=== PATIENT | male | born 1950 | race Hispanic/Latino ===

== ENCOUNTER 2023-10-23 23:16 | Emergency (ER) | payer OTHER ==
[2023-10-24] MEDS ORDERED: DIAZEPAM 10 MG/2 ML INJ SYRINGE ONE (00:51)
[2023-10-24 01:14] LABS: Barbiturates NEGATIVE (NEGATIVE); Benzodiazepines NEGATIVE (NEGATIVE); Cocaine NEGATIVE (NEGATIVE); METHAMPHETAM NEGATIVE (NEGATIVE); Methadone NEGATIVE (NEGATIVE); Opiates NEGATIVE (NEGATIVE); Phencyclidine NEGATIVE (NEGATIVE); THC Cannibis NEGATIVE (NEGATIVE)
[2023-10-24 01:19] LABS: PT Prothrombin Time 11.8 SECONDS (9.5-12.5); Protime INR 1.07
[2023-10-24 01:21] LABS: Hematocrit 38.7 % (39.6-49.0); Hemoglobin 13.4 g/dL (13.6-17.9); MCH 35.8 pg (27.0-35.0); MCHC 34.7 g/dL (32.0-36.0); MCV 103.3 fL (80-100); Platelets 159 thou/uL (152-406); RBC Red Blood Cell Count 3.75 M/uL (4.33-5.43); Red Cell Distribution Width 14.7 % (12.1-15.2)
[2023-10-24 01:22] LABS: Absolute Eosinophils 0.2 K/uL (0-0.5); Absolute Lymphocytes (CBC) 2.1 K/uL (0.7-4.9); Absolute Monocytes 0.8 K/uL (0.1-1.3); Absolute Neutrophil 2.2 K/uL (1.8-8.0); Basophils % 0.8 % (0-1.3); Eosinophils % 3.7 % (0-4.4); Lymphocytes % 39.6 % (15.3-44.8); MPV 7.8 fL (7.6-11.3); Monocytes % 14.2 % (3.3-12.3); Neutrophils % 41.7 % (41.7-73.7); Nucleated Red Blood Cells % 0.1 % (0-0)
[2023-10-24 01:36] LABS: ALT/SGPT 54 U/L (16-61); AST/SGOT 80 U/L (15-37); Albumin 3.5 g/dL (3.4-5.0); Albumin/Globulin Ratio 0.8 (1.1-1.8); Alkaline Phosphatase 149 U/L (45-117); Anion Gap 9.6 mEq/L (5.0-15.0); BUN Blood Urea Nitrogen 4 mg/dL (7-18); Bicarbonate 26 mEq/L (21-32); Bilirubin Direct 0.1 mg/dL (0-0.2); Bilirubin Indirect, Calculated 0.3 mg/dL (0.2-0.8); Bilirubin Total 0.4 mg/dL (0.2-1.0); Globulin 4.6 g/dL (2.3-3.5); Glomerular Filtration Rate 98 ml/min (=/>90); Glucose Level 84 mg/dL (74-106); NT PRO-BNP 62 pg/mL (<125); Potassium 3.6 mEq/L (3.5-5.1); Protein, Total 8.1 g/dL (6.4-8.2); Sodium Level 128 mEq/L (136-145)
[2023-10-24 01:51] LABS: C-Reactive Protein < 2.90 mg/L (<3.00)
--- NOTE | 2023-10-24 04:45 | EDPHYS ---
Physician Documentation [facility] Name: Ramakrishna Devine Age: 73 yrs Sex: Male : 1950 Arrival Date: 10/23/2023 Time: 23:16 Bed 17 Private MD: ED Physician William Hilton HPI: 10/23 02:44 This 73 yrs old Male presents to ER via EMS with complaints of Chest Pain. sp4 03:22 Patient is a 73-year-old male with no significant past medical history. Patient sp4 presents with EMS for acute alcoholic intoxication and also for complaint of acute lower chest pain on the right side. Patient states he developed chest pain at home after he had a 12 pack of beer. Patient smokes about 2 packs cigarettes a day. Denied any medications of any prior past medical history.. Historical: - Allergies: 00:37 No Known Allergies; tm6 - PMHx: 00:37 None; tm6 - PSHx: 00:37 hernia repair; tm6 - Immunization history:: Adult Immunizations up to date, Client reports having NOT received the Covid vaccine. Flu vaccine is up to date. - Infectious Disease History:: Denies. - Social history:: Smoking status: Patient reports the use of cigarette tobacco products, smokes three packs cigarettes per day. Patient uses alcohol, on a daily basis. 12 pack a day. - Family history:: not pertinent. ROS: 03:22 Constitutional: Negative for fever, chills, and weight loss, positive for acute right sp4 lower chest pain 03:22 All other systems are negative, Exam: 02:51 ECG was reviewed by the Attending Physician. EKG at 0035 normal sinus rhythm at the sp4 rate of 61 normal EKG, muscle tremor artifact 03:22 Constitutional: This is a well developed, well nourished patient who is awake, alert, sp4 and in no acute distress. Small size male appears intoxicated Head/Face: Normocephalic, atraumatic. Eyes: Pupils equal round and reactive to light, extra-ocular motions intact. Lids and lashes normal. Conjunctiva and sclera are not injected. Cornea within normal limits. Periorbital areas with no swelling, redness, or edema. ENT: Nares patent. No nasal discharge, no septal abnormalities noted. Tympanic membranes are normal and external auditory canals are clear. Oropharynx with no redness, swelling, or masses, exudates, or evidence of obstruction, uvula midline. Mucous membranes moist. Neck: Trachea midline, no thyromegaly or masses palpated, and no cervical lymphadenopathy. Supple, full range of motion without nuchal rigidity, or vertebral point tenderness. Chest/axilla: Normal chest wall appearance and motion. Nontender with no deformity. No lesions are appreciated. Cardiovascular: Regular rate and rhythm with a normal S1 and S2. No gallops, murmurs, or rubs. Normal PMI, no JVD. No pulse deficits. Respiratory: Lungs have equal breath sounds bilaterally, clear to auscultation and percussion. No rales, rhonchi or wheezes noted. No increased work of breathing, no retractions or nasal flaring. Abdomen/GI: Soft, with normal bowel sounds. No distension or tympany. No guarding or rebound. No evidence of tenderness throughout. Back: No spinal tenderness. No costovertebral tenderness. Skin: Warm, dry with normal turgor. Normal color with no rashes, no lesions, and no evidence of cellulitis. MS/ Extremity: Pulses equal, no cyanosis. Neurovascular intact. Full, normal range of motion. Neuro: Awake and alert, GCS 15, oriented to person, place, time, and situation. Cranial nerves II-XII grossly intact. Motor strength 5/5 in all extremities. Sensory grossly intact. Psych: Awake, alert, with orientation to person, place and time. Behavior, mood, and affect are within normal limits Vital Signs: 10/22 22:30 BP 108 / 53; Pulse 62; Resp 19; Temp 97.3(TE); Pulse Ox 98% on R/A; Weight 64.41 kg; tm6 Height 5 ft. 4 in. ; Pain 5/10; 10/23 00:54 BP 139 / 67; Pulse 64; Pulse Ox 98% on R/A; Pain 0/10; tm6 02:22 BP 134 / 59; Pulse 65; Pulse Ox 99% on R/A; Pain 0/10; tm6 04:08 BP 119 / 58; Pulse 60; Pulse Ox 98% on R/A; Pain 0/10; tm6 05:23 BP 118 / 67; Pulse 59; Resp 18; Temp 97.1(TE); Pulse Ox 97% on R/A; Pain 0/10; tm6 10/22 22:30 Body Mass Index 24.37 (64.41 kg, 162.56 cm) tm6 10/22 22:30 Pain Scale: Adult tm6 10/23 00:54 Pain Scale: Adult tm6 02:22 Pain Scale: Adult tm6 04:08 Pain Scale: Adult tm6 05:23 Pain Scale: Adult tm6 MDM: 10/22 23:28 Patient medically screened. sp4 10/23 03:18 ED course: EXAM: XR Chest, 1 View CLINICAL HISTORY: The patient is 73 years old and is sp4 Male; CHEST PAIN TECHNIQUE: Frontal view of the chest. COMPARISON: No relevant prior studies available. FINDINGS: LUNGS: Mild coarse interstitial markings are present. There is no lobar consolidation. PLEURAL SPACE: Unremarkable. No pneumothorax. HEART: Unremarkable. No cardiomegaly. MEDIASTINUM: Unremarkable. Normal mediastinal contour. BONES/JOINTS: Minimal degenerative change of the bones is noted. No acute fracture. VASCULATURE: Atherosclerosis of the aorta is present. UPPER ABDOMEN: Unremarkable as visualized. IMPRESSION: No acute cardiopulmonary process.. ED course: CT - IMPRESSION: 1. No acute findings of the chest, abdomen, or pelvis. 2. Moderate to severe pulmonary emphysema with bronchitis. 3. Urinary bladder wall distention and wall diverticulum likely due to chronic outlet obstruction in the setting of prostatomegaly. 4. Additional chronic and incidental findings above. Electronically signed by: Roly Cohn MD 10/24/2023 03:04 AM CDT. 04:41 Differential diagnosis: abnormal EKG, acute myocardial infarction, acute pericarditis, sp4 anxiety, chest wall pain, congestive heart failure Cholelithiasis. HEART Score: History: Slightly Suspicious (0), ECG: Normal (0), Age: > or = 65 years (2), Risk Factors: No Risk Factors Known (0), Troponin: < or = 1 x Normal Limit (0), Total Score = 2. The patient was given aspirin in the Emergency Department. Data reviewed: vital signs, nurses notes, EMS record, lab test result(s), EKG, radiologic studies, CT scan. ED course: Patient was investigated and repeat troponin is negative. Patient's problems likely stem from excess alcohol abuse and tobacco use. No sign of acute coronary syndrome at this time. Patient advised to abstain from alcohol abuse and tobacco smoking. Patient discharged home without incident. 10/22 23:28 Order name: Basic Metabolic Panel; Complete Time: 02:25 sp4 10/22 23:28 Order name: CBC with Diff; Complete Time: 02:25 sp4 10/22 23:28 Order name: LFT's; Complete Time: 02:25 sp4 10/22 23:28 Order name: Magnesium; Complete Time: 02:25 sp4 10/22 23:28 Order name: NT PRO-BNP; Complete Time: 02:25 sp4 10/22 23:28 Order name: PT-INR; Complete Time: 02:25 sp4 10/22 23:28 Order name: Troponin HS; Complete Time: 02:25 sp4 10/22 23:28 Order name: ETOH Level; Complete Time: 02:25 sp4 10/22 23:28 Order name: UDS; Complete Time: 02:25 sp4 10/23 01:13 Order name: C-Reactive Protein; Complete Time: 02:25 EDMS 10/23 02:26 Order name: Troponin High Sensitivity; Complete Time: 04:41 sp4 10/22 23:28 Order name: XRAY Chest (1 view) sp4 10/22 23:40 Order name: CT Chest, Abdomen, Pelvis - W/Contrast sp4 10/22 23:28 Order name: EKG; Complete Time: 23:29 sp4 10/22 23:28 Order name: Cardiac monitoring; Complete Time: 00:47 sp4 10/22 23:28 Order name: EKG - Nurse/Tech; Complete Time: 00:47 sp4 10/22 23:28 Order name: IV Saline Lock; Complete Time: 00:47 sp4 10/22 23:28 Order name: Labs collected and sent; Complete Time: 00:47 sp4 10/22 23:28 Order name: O2 Per Protocol; Complete Time: 00:35 sp4 10/22 23:28 Order name: O2 Sat Monitoring; Complete Time: 00:35 sp4 EC:51 Rate is 61 beats/min. Rhythm is regular, Normal Sinus Rhythm. QRS [place] is Normal. SD sp4 interval is normal. QRS interval is normal. QT interval is normal. No Q waves. T waves are Normal. No ST changes noted. Clinical impression: Normal ECG. Interpreted by me. Reviewed by me. Administered Medications: 00:53 Drug: Diazepam IVP 5 mg IVP once Route: IVP; Site: left wrist; tm6 04:12 Not Given (Patient Refused): morphineor iv 4 mg IVP once over 4 mins tm6 04:12 Not Given (Patient Refused): ondansetron 4 mg IVP once; over 2 minutes tm6 Disposition Summary: 10/24/23 04:44 Discharge Ordered Problem: new sp4 Symptoms: have improved sp4 Condition: Stable sp4 Diagnosis - Alcohol abuse with intoxication sp4 - Acute noncardiac chest pain, emphysema, hyponatremia secondary to alcohol abuse. sp4 Followup: sp4 - With: Camacho Lau DO - When: 7 - 10 days - Reason: Recheck today's complaints Discharge Instructions: - Discharge Summary Sheet sp4 - Alcohol Intoxication sp4 Forms: - Patient Portal Instructions sp4 Signatures: Dispatcher [employer] EDMS William Hiltno MD MD sp4 Monika Oconnell RN RN tm6 Corrections: (The following items were deleted from the chart) 10/22 23:41 23:41 Chest Abdomen Pelvis W Con+CT.RAD.BRZ ordered. EDMS EDMS 10/23 01:13 10/22 23:41 C-REACTIVE PROTEIN+C.LAB.BRZ ordered. EDMS EDMS
--- NOTE | 2023-10-24 04:45 | ER ---
Nurse's Notes [facility] Name: Ramakrishna Devine Age: 73 yrs Sex: Male : 1950 Arrival Date: 10/23/2023 Time: 23:16 Bed 17 Private MD: Diagnosis: Alcohol abuse with intoxication;Acute noncardiac chest pain, emphysema, hyponatremia secondary to alcohol abuse. Presentation: 10/22 22:30 Chief complaint: EMS states: Stabbing chest pain on right side. Coronavirus screen: tm6 Vaccine status: Patient reports being unvaccinated. Ebola Screen: Patient negative for fever greater than or equal to 101.5 degrees Fahrenheit, and additional compatible Ebola Virus Disease symptoms Patient denies exposure to infectious person. Patient denies travel to an Ebola-affected area in the 21 days before illness onset. No symptoms or risks identified at this time. Initial Sepsis Screen: Does the patient meet any 2 criteria? No. Patient's initial sepsis screen is negative. Does the patient have a suspected source of infection? No. Patient's initial sepsis screen is negative. Risk Assessment: Do you want to hurt yourself or someone else? Patient reports no desire to harm self or others. Onset of symptoms was October 23, 2023 at 22:00. 22:30 Method Of Arrival: EMS: [facility] tm6 22:30 Acuity: LESLIE 3 tm6 Triage Assessment: 22:30 General: Appears in no apparent distress. Behavior is cooperative. Pain: Complains of tm6 pain in right breast Pain currently is 5 out of 10 on a pain scale. Quality of pain is described as stabbing, Pain began 30 min ago. EENT: No signs and/or symptoms were reported regarding the EENT system. Neuro: Level of Consciousness is awake, alert, obeys commands, Oriented to person, place, time, situation. Cardiovascular: Reports chest pain, Patient's skin is warm and dry. Rhythm is sinus rhythm. Respiratory: Airway is patent Respiratory effort is even, unlabored, Respiratory pattern is regular, symmetrical. GI: No signs and/or symptoms were reported involving the gastrointestinal system. Abdomen is flat, non-distended. : No signs and/or symptoms were reported regarding the genitourinary system. Derm: No signs and/or symptoms reported regarding the dermatologic system. Musculoskeletal: No signs and/or symptoms reported regarding the musculoskeletal system. Historical: - Allergies: 10/23 00:37 No Known Allergies; tm6 - PMHx: 00:37 None; tm6 - PSHx: 00:37 hernia repair; tm6 - Immunization history:: Adult Immunizations up to date, Client reports having NOT received the Covid vaccine. Flu vaccine is up to date. - Infectious Disease History:: Denies. - Social history:: Smoking status: Patient reports the use of cigarette tobacco products, smokes three packs cigarettes per day. Patient uses alcohol, on a daily basis. 12 pack a day. - Family history:: not pertinent. Screenin:39 [facility] ED Fall Risk Assessment (Adult) History of falling in the last 3 months, tm6 including since admission No falls in past 3 months (0 pts) Confusion or Disorientation No (0 pts) Intoxicated or Sedated No (0 pts) Impaired Gait No (0 pts) Mobility Assist Device Used No (0 pt) Altered Elimination No (0 pt) Score/Fall Risk Level 0 - 2 = Low Risk Oriented to surroundings, Maintained a safe environment. Abuse screen: Denies threats or abuse. Denies injuries from another. Nutritional screening: No deficits noted. Tuberculosis screening: No symptoms or risk factors identified. Assessment: 00:39 Reassessment: see triage assessment. tm6 00:54 Reassessment: Patient and/or family updated on plan of care and expected duration. Pain tm6 level reassessed. Patient is alert, oriented x 3, equal unlabored respirations, skin warm/dry/pink. Patient states feeling better. 02:00 Reassessment: Patient and/or family updated on plan of care and expected duration. Pain tm6 level reassessed. Patient is alert, oriented x 3, equal unlabored respirations, skin warm/dry/pink. 02:23 Reassessment: Patient and/or family updated on plan of care and expected duration. Pain tm6 level reassessed. Patient is alert, oriented x 3, equal unlabored respirations, skin warm/dry/pink. 04:08 Reassessment: Patient and/or family updated on plan of care and expected duration. Pain tm6 level reassessed. Patient is alert, oriented x 3, equal unlabored respirations, skin warm/dry/pink. 05:23 Reassessment: Patient and/or family updated on plan of care and expected duration. Pain tm6 level reassessed. Patient is alert, oriented x 3, equal unlabored respirations, skin warm/dry/pink. Patient states feeling better. Vital Signs: 10/22 22:30 BP 108 / 53; Pulse 62; Resp 19; Temp 97.3(TE); Pulse Ox 98% on R/A; Weight 64.41 kg; tm6 Height 5 ft. 4 in. ; Pain 5/10; 10/23 00:54 BP 139 / 67; Pulse 64; Pulse Ox 98% on R/A; Pain 0/10; tm6 02:22 BP 134 / 59; Pulse 65; Pulse Ox 99% on R/A; Pain 0/10; tm6 04:08 BP 119 / 58; Pulse 60; Pulse Ox 98% on R/A; Pain 0/10; tm6 05:23 BP 118 / 67; Pulse 59; Resp 18; Temp 97.1(TE); Pulse Ox 97% on R/A; Pain 0/10; tm6 10/22 22:30 Body Mass Index 24.37 (64.41 kg, 162.56 cm) tm6 10/22 22:30 Pain Scale: Adult tm6 10/23 00:54 Pain Scale: Adult tm6 02:22 Pain Scale: Adult tm6 04:08 Pain Scale: Adult tm6 05:23 Pain Scale: Adult tm6 ED Course: 10/22 22:30 Arm band placed on right wrist. tm6 22:30 Patient has correct armband on for positive identification. Placed in gown. Bed in low tm6 position. Call light in reach. Side rails up X2. Provided Education on: plan of care. Client placed on continuous cardiac and pulse oximetry monitoring. NIBP monitoring applied. laboratory monitor on. Pulse ox on. NIBP on. Door closed. Noise minimized. Warm blanket given. Pillow given. 23:20 Patient arrived in ED. sb4 23:28 William Hilton MD is Attending Physician. sp4 23:48 Monika Oconnell RN is Primary Nurse. tm6 10/23 00:00 Missed attempt(s): 20 gauge in right antecubital area. tm6 00:09 XRAY Chest (1 view) In Process Unspecified. EDMS 00:15 Missed attempt(s): 20 gauge in left forearm. tm6 00:35 UDS Sent. tm6 00:37 Triage completed. tm6 00:47 EKG done, by ED staff, reviewed by William Hilton MD. tm6 00:48 Inserted saline lock: 20 gauge in left forearm, using aseptic technique. tm6 00:48 Basic Metabolic Panel Sent. tm6 00:48 CBC with Diff Sent. tm6 00:48 LFT's Sent. tm6 00:49 Magnesium Sent. tm6 00:49 NT PRO-BNP Sent. tm6 00:49 PT-INR Sent. tm6 00:49 Troponin HS Sent. tm6 00:49 ETOH Level Sent. tm6 02:08 CT Chest, Abdomen, Pelvis - W/Contrast In Process Unspecified. EDMS 03:13 Troponin High Sensitivity Sent. tm6 03:13 PO fluids given. sandwich provided. tm6 04:44 Camacho Lau DO is Referral Physician. sp4 05:24 No provider procedures requiring assistance completed. IV discontinued, intact, tm6 bleeding controlled, No redness/swelling at site. Pressure dressing applied. Administered Medications: 00:53 Drug: Diazepam IVP 5 mg IVP once Route: IVP; Site: left wrist; tm6 04:12 Not Given (Patient Refused): morphineor iv 4 mg IVP once over 4 mins tm6 04:12 Not Given (Patient Refused): ondansetron 4 mg IVP once; over 2 minutes tm6 Medication: 00:39 VIS not applicable for this client. tm6 Output: 02:25 Urine: 1000ml (Voided); Total: 1000ml. tm6 Outcome: 04:44 Discharge ordered by . sp4 05:24 Discharged to home ambulatory, tm6 05:24 Condition: stable 05:24 Discharge instructions given to patient, Instructed on discharge instructions, follow up and referral plans. Demonstrated understanding of instructions, follow-up care, 05:24 Patient left the ED. tm6 Signatures: Dispatcher [employer] EDZeenat Lyles PA-C PA-C sb4 Potepalov, Sergey, MD MD sp4 Monika Oconnell RN RN tm6
[2023-10-24 05:53] VITALS: BP 118/67; TEMP 97.1; O2SAT 97
--- NOTE | 2023-10-24 11:26 | RAD REPORT ---
EXAM DESCRIPTION: CT CHEST ABDOMEN PELVIS WITH IV CONTRAST CLINICAL HISTORY: Male, 73 years old, abdominal pain and chest pain COMPARISON: Chest radiograph 10/23/2023 TECHNIQUE: CT acquisition of the chest, abdomen and pelvis following the administration of IV contra st. Coronal and sagittal reformatted images provided. This exam was performed according to department al dose-optimization program which includes automated exposure control, adjustment of the mA and/or k V according to patient size, and/or use of iterative reconstruction technique. FINDINGS: SUPPORTIVE DEVICES: None. LOWER NECK: Unremarkable. CHEST: Mediastinum/fannie: Aortic atherosclerosis without aneurysm. The pulmonary vasculature is unremarkable. No evident thoracic adenopathy. Unremarkable esophagus. Heart: Normal size. No pericardial thickening or effusion. Severe coronary artery calcifications. Lungs: Moderate to severe apical predominant centrilobular and paraseptal emphysema. Right greater th an left dependent airspace disease most consistent with atelectasis. Biapical capping. No suspicious pulmonary nodule identified. Central airways are clear. Smooth bronchial wall thickening. Pleural Space: No pleural effusion or pneumothorax. ABDOMEN AND PELVIS: Liver: Diffuse hypoenhancement relative to the spleen. Small nonsuspicious hypodense lesions in both lobes. Gallbladder and bile ducts: Normal. Pancreas: Normal. Spleen: Multiple small calcifications. Adrenal glands: Normal. Kidneys and ureters: Normal. Bladder: Large distention with left wall diverticulum. Reproductive organs: Prostatomegaly. GI tract: Normal caliber without wall thickening. No evidence of appendicitis. Lymph nodes: No evident adenopathy. Peritoneum: No evidence of ascites, fluid collection, or free air. Abdominal wall: No significant hernia. Vessels: Atherosclerosis without evidence of aneurysm. MUSCULOSKELETAL: No acute osseous abnormality. Several nonacute right anterior rib fractures. Degener ative changes of the spine and pelvis. IMPRESSION: 1. No acute findings of the chest, abdomen, or pelvis. 2. Moderate to severe pulmonary emphysema with bronchitis. 3. Urinary bladder wall distention and wall diverticulum likely due to chronic outlet obstruction i n the setting of prostatomegaly. 4. Additional chronic and incidental findings above. Electronically signed by: Roly Cohn MD 10/24/2023 03:04 AM CDT Due to temporary technical issues with the PACS/Fluency reporting system, reports are being signed by the in house radiologist without review as a courtesy to ensure prompt reporting. The interpreting r adiologist is fully responsible for the content of the report.
--- NOTE | 2023-10-24 13:24 | RAD REPORT ---
EXAM DESCRIPTION: XR Chest, 1 View CLINICAL HISTORY: The patient is 73 years old and is Male; CHEST PAIN TECHNIQUE: Frontal view of the chest. COMPARISON: No relevant prior studies available. FINDINGS: LUNGS: Mild coarse interstitial markings are present. There is no lobar consolidation. PLEURAL SPACE: Unremarkable. No pneumothorax. HEART: Unremarkable. No cardiomegaly. MEDIASTINUM: Unremarkable. Normal mediastinal contour. BONES/JOINTS: Minimal degenerative change of the bones is noted. No acute fracture. VASCULATURE: Atherosclerosis of the aorta is present. UPPER ABDOMEN: Unremarkable as visualized. IMPRESSION: No acute cardiopulmonary process. Electronically signed by: Norma Newman MD 10/24/2023 12:28 AM CDT Due to temporary technical issues with the PACS/Fluency reporting system, reports are being signed by the in house radiologist without review as a courtesy to ensure prompt reporting. The interpreting r adiologist is fully responsible for the content of the report.
--- NOTE | 2023-10-25 15:42 | EKG ---
Test Date: 2023-10-24 Test Time: 00:35:51 Sterile Processing Technician: EAMON MEASUREMENT RESULTS: Intervals: Rate: 61 NC: 150 QRSD: 74 QT: 418 QTc: 420 [place]: P: 78 NC: 150 QRS: 79 T: 65 INTERPRETIVE STATEMENTS: Normal sinus rhythm Normal ECG No previous ECG available for comparison Electronically Signed On 10-25-23 15:39:35 CDT by Fredy Shay
== END 2023-10-24 05:24 | disposition home or self-care (01) ==
LOC: ER 23:16
DX: F10.129 Alcohol abuse with intoxication, unspecified (principal); E87.1 Hypo-osmolality and hyponatremia; J43.9 Emphysema, unspecified; F17.210 Nicotine dependence, cigarettes, uncomplicated; Z28.310 Unvaccinated for COVID-19
CPT/HCPCS: 93005; 85025; 80048; 36415; 83735; 85610; 80076; 84484 ×2; 83880; 80307; 86140; 71260; 74177; 71045; 82077; Q9967; J3360

== ENCOUNTER 2024-03-28 01:30 | Emergency (ER) | payer OTHER ==
[2024-03-28] MEDS ORDERED: THIAMINE 200 MG/2 ML INJ ONE (01:50)
[2024-03-28] MEDS ORDERED: NA CHLORIDE 0.9% 1,000 ML ONE (01:51)
[2024-03-28] MEDS ORDERED: FOLIC ACID 5 MG/ML VIAL ONE (01:51)
[2024-03-28] MEDS ORDERED: MULTIVITAMINS 10 ML VIAL (INJ) IV ONE (01:52)
[2024-03-28 02:17] LABS: Absolute Eosinophils 0.3 K/uL (0-0.5); Absolute Lymphocytes (CBC) 2.3 K/uL (0.7-4.9); Absolute Monocytes 1.1 K/uL (0.1-1.3); Basophils % 0.3 % (0-1.3); Eosinophils % 2.4 % (0-4.4); Hematocrit 40.1 % (39.6-49.0); Hemoglobin 13.5 g/dL (13.6-17.9); Lymphocytes % 21.7 % (15.3-44.8); MCH 35.3 pg (27.0-35.0); MCHC 33.5 g/dL (32.0-36.0); MCV 105.4 fL (80-100); MPV 8.7 fL (7.6-11.3); Monocytes % 10.1 % (3.3-12.3); Neutrophils % 65.5 % (41.7-73.7); Platelets 172 thou/uL (152-406); RBC Red Blood Cell Count 3.81 M/uL (4.33-5.43); Red Cell Distribution Width 13.8 % (12.1-15.2)
[2024-03-28 02:36] LABS: Albumin 3.7 g/dL (3.4-5.0); Albumin/Globulin Ratio 0.8 (1.1-1.8); Anion Gap 12.5 mEq/L (5.0-15.0); Bilirubin Direct 0.4 mg/dL (0-0.2); Bilirubin Indirect, Calculated 0.7 mg/dL (0.2-0.8); Bilirubin Total 1.1 mg/dL (0.2-1.0); Globulin 4.4 g/dL (2.3-3.5); Potassium 3.5 mEq/L (3.5-5.1); Protein, Total 8.1 g/dL (6.4-8.2)
[2024-03-28 03:26] LABS: Blood Morphology Comment NOTED (NOT SEEN); Macrocytosis SLIGHT; Platelet Estimate ADEQ; White Blood Cell Scan OK (OK)
--- NOTE | 2024-03-28 04:54 | EDPHYS ---
Physician Documentation [facility] Name: Ramakrishna Graham Age: 73 yrs Sex: Male : 1950 Arrival Date: 03/28/2024 Time: 01:30 Bed 14 Private MD: ED Physician William Hilton HPI: 03/28 01:33 This 73 yrs old Male presents to ER via Unassigned with complaints of Leg Pain.sp4 04:55 73-year-old male with history of chronic alcohol abuse and chronic peripheral arterial sp4 disease with history of left femoral-popliteal bypass, presents for alcohol intoxication and worsening left lower extremity pain. . Historical: - Allergies: 01:33 No Known Allergies; ss - Home Meds: :33 None [Active]; ss - PMHx: 01:33 ETOH abuse; ss - PSHx: 01:33 hernia repair; vascular bypass L leg (hernia repair); ss - Immunization history:: Adult Immunizations up to date. - Infectious Disease History:: Denies. - Social history:: Smoking status: Patient reports the use of cigarette tobacco products, smokes two packs cigarettes per day. - Family history:: not pertinent. ROS: 04:55 Constitutional: Negative for fever, chills, and weight loss, positive intoxication and sp4 positive left lower leg pain 04:55 All other systems are negative, Exam: 04:55 Constitutional: This is a well developed, well nourished patient who is awake, alert, sp4 and in no acute distress. Intoxicated male . Head/Face: Normocephalic, atraumatic. Eyes: Pupils equal round and reactive to light, extra-ocular motions intact. Lids and lashes normal. Conjunctiva and sclera are not injected. Cornea within normal limits. Periorbital areas with no swelling, redness, or edema. ENT: Nares patent. No nasal discharge, no septal abnormalities noted. Tympanic membranes are normal and external auditory canals are clear. Oropharynx with no redness, swelling, or masses, exudates, or evidence of obstruction, uvula midline. Mucous membranes moist. Neck: Trachea midline, no thyromegaly or masses palpated, and no cervical lymphadenopathy. Supple, full range of motion without nuchal rigidity, or vertebral point tenderness. Chest/axilla: Normal chest wall appearance and motion. Nontender with no deformity. No lesions are appreciated. Cardiovascular: Regular rate and rhythm with a normal S1 and S2. No gallops, murmurs, or rubs. Normal PMI, no JVD. No pulse deficits. Respiratory: Lungs have equal breath sounds bilaterally, clear to auscultation and percussion. No rales, rhonchi or wheezes noted. No increased work of breathing, no retractions or nasal flaring. Abdomen/GI: Soft, with normal bowel sounds. No distension or tympany. No guarding or rebound. No evidence of tenderness throughout. Back: No spinal tenderness. No costovertebral tenderness. Skin: Warm, dry with normal turgor. Normal color with no rashes, no lesions, and no evidence of cellulitis. MS/ Extremity: Pulses equal, no cyanosis. Neurovascular intact. Full, normal range of motion. Positive diminished peripheral pulses bilaterally in lower extremities , No signs of acute ischemic limb Neuro: Awake and alert, GCS 15, oriented to person, place, time, and situation. Cranial nerves II-XII grossly intact. Motor strength 5/5 in all extremities. Sensory grossly intact. Psych: Awake, alert, with orientation to person, place and time. Behavior, mood, and affect are within normal limits Vital Signs: 01:32 BP 107 / 77; Resp 17; Temp 97.9(O); Pain 10/10; ss 01:40 BP 107 / 77; Pulse 77; Resp 17; Temp 97.9; Pulse Ox 97% on R/A; Pain 8/10; rg5 02:29 BP 121 / 78; Pulse 78; Resp 18; Pulse Ox 99% on R/A; rg5 03:22 BP 113 / 71; Pulse 90; Resp 18; Pulse Ox 96% on R/A; Pain 4/10; rg5 04:07 BP 113 / 71; Pulse 87; Resp 17; Pulse Ox 98% on R/A; Pain 3/10; rg5 05:00 BP 118 / 78; Pulse 85; Resp 17; Pulse Ox 100% on R/A; Pain 0/10; rg5 01:32 Pain Scale: Adult ss 01:40 Pain Scale: Adult rg5 03:22 Pain Scale: Adult rg5 04:07 Pain Scale: Adult rg5 05:00 Pain Scale: Adult rg5 Agustina Coma Score: 01:40 Eye Response: spontaneous(4). Motor Response: obeys commands(6). Verbal Response: rg5 oriented(5). Total: 15. 04:55 Eye Response: spontaneous(4). Motor Response: obeys commands(6). Verbal Response: sp4 oriented(5). Total: 15. MDM: 03:49 Patient medically screened. sp4 04:52 ED course: EXAMINATION: Lower ExtremityArtery Uni Ltd INDICATION: Left leg pain. sp4 Patient reports to have a stent years ago. TECHNIQUE: Yen scale, color and spectral Doppler ultrasound exam was performed of the left lower extremity arteries. COMPARISON: None. FINDINGS: The visualized left lower extremity arteries demonstrate monophasic waveforms and dampened peak systolic velocities. An endovascular stent appears present from proximal/mid superficial femoral artery to distal superficial femoral artery. No focal stenosis. Peak velocity Mid PHYSICIAN PRACTICE COORDINATOR: 29.4 cm/s Prox SFA: 24.9 cm/s Mid SFA: 28.4 cm/s Dist SFA: 19.3 cm/s Pop A: 18.0 cm/s LOGISTICS TECH: 17.7 cm/s DPA: 11.4 cm/s IMPRESSION: 1. Diffusely dampened velocities within the left lower extremity arteries. No focal stenosis. 2. Left lower extremity stent appears patent. Electronically signed by: Radha Fierro MD 03/28/2024 04:24 AM CDT RP. 04:57 Differential diagnosis: dislocation, closed fracture, contusion, abrasion, tendonitis, sp4 Claudication. Data reviewed: vital signs, nurses notes, EMS record, lab test result(s), radiologic studies, ultrasound. Consideration of Admission/Observation Escalation of care including admission/observation considered. ED course: Stable for discharge home. Advised to discontinue alcohol abuse.. 03/28 01:33 Order name: Basic Metabolic Panel; Complete Time: 03:50 sp4 03/28 01:33 Order name: CBC with Diff; Complete Time: 03:50 sp4 03/28 01:33 Order name: LFT's; Complete Time: 03:50 sp4 03/28 01:34 Order name: Alcohol Level; Complete Time: 03:50 sp4 03/28 02:20 Order name: CBC Smear Scan; Complete Time: 03:50 EDMS 03/28 01:34 Order name: Lower Extremity Artery Uni Ltd sp4 03/28 01:33 Order name: IV Saline Lock; Complete Time: 01:46 sp4 03/28 01:33 Order name: Labs collected and sent; Complete Time: :46 sp4 Administered Medications: 01:58 Drug: Banana Bag - (Multivitamin IV 1 amp, NS 0.9% IV 1000 ml, Thiamine IV 100 mg, rg5 foLIC Acid IVPB 1 mg) IV at calculated rate once Route: IV; Rate: calculated rate; Site: right antecubital; 03:45 Follow up: Response: No adverse reaction; IV Status: Completed infusion; IV Intake: rg5 1000ml Disposition Summary: 03/28/24 04:53 Discharge Ordered Notes: Location: Home sp4 Problem: new sp4 Symptoms: have improved sp4 Condition: Stable sp4 Diagnosis - Alcohol abuse with intoxication sp4 - Alcoholic hepatitis, hyponatremia secondary to alcoholism, beer potomania , sp4 chronic left lower extremity peripheral arterial disease with claudication Followup: sp4 - With: Private Physician - When: 7 - 10 days - Reason: Recheck today's complaints Discharge Instructions: - Discharge Summary Sheet sp4 - Alcohol Intoxication sp4 Forms: - Patient Portal Instructions sp4 Signatures: Dispatcher [employer] Kiley Reynolds RN RN William Hilton MD MD sp4 Darius Fernandez RN RN rg5
--- NOTE | 2024-03-28 04:54 | ER ---
Nurse's Notes [facility] Name: Ramakrishna Graham Age: 73 yrs Sex: Male : 1950 Arrival Date: 03/28/2024 Time: 01:30 Bed 14 Private MD: Diagnosis: Alcohol abuse with intoxication;Alcoholic hepatitis, hyponatremia secondary to alcoholism, beer potomania , chronic left lower extremity peripheral arterial disease with claudication Presentation: 03/28 01:32 Chief complaint: Patient states: L leg pain described as throbbing. Coronavirus screen: ss Client denies travel out of the [place] in the last 14 days. Ebola Screen: Patient denies exposure to infectious person. Patient denies travel to an Ebola-affected area in the 21 days before illness onset. Initial Sepsis Screen: Does the patient meet any 2 criteria? No. Patient's initial sepsis screen is negative. Does the patient have a suspected source of infection? No. Patient's initial sepsis screen is negative. Risk Assessment: Do you want to hurt yourself or someone else? Patient reports no desire to harm self or others. Onset of symptoms is unknown. 01:32 Method Of Arrival: EMS: [facility] 01:32 Acuity: LESLIE 3 Historical: - Allergies: 01:33 No Known Allergies; ss - Home Meds: 01:33 None [Active]; ss - PMHx: 01:33 ETOH abuse; ss - PSHx: 01:33 hernia repair; vascular bypass L leg (hernia repair); ss - Immunization history:: Adult Immunizations up to date. - Infectious Disease History:: Denies. - Social history:: Smoking status: Patient reports the use of cigarette tobacco products, smokes two packs cigarettes per day. - Family history:: not pertinent. Screenin:40 [facility] ED Fall Risk Assessment (Adult) History of falling in the last 3 months, rg5 including since admission No falls in past 3 months (0 pts) Confusion or Disorientation No (0 pts) Intoxicated or Sedated No (0 pts) Impaired Gait No (0 pts) Mobility Assist Device Used No (0 pt) Altered Elimination No (0 pt) Score/Fall Risk Level 0 - 2 = Low Risk Oriented to surroundings, Maintained a safe environment, Hourly rounding (assess needs \T\ fall precautionary measures) done. Abuse screen: Denies threats or abuse. Nutritional screening: No deficits noted. Tuberculosis screening: No symptoms or risk factors identified. Assessment: 01:40 General: Appears in no apparent distress. comfortable, Behavior is calm, cooperative, rg5 appropriate for age. Pain: Complains of pain in left leg Pain currently is 8 out of 10 on a pain scale. Quality of pain is described as aching, Pain began 2 hours ago. Is continuous, Alleviated by medications, rest. Neuro: Level of Consciousness is awake, alert, obeys commands, Oriented to person, place, time, situation. 01:40 Cardiovascular: Denies chest pain, shortness of breath, Heart tones S1 S2 Patient's rg5 skin is warm and dry. Respiratory: Airway is patent Trachea midline Respiratory effort is even, Respiratory pattern is regular, symmetrical. GI: Abdomen is flat, non-distended, Abd is soft and non tender. : No signs and/or symptoms were reported regarding the genitourinary system. EENT: No deficits noted. Derm: Skin is intact, Skin is dry, Skin is normal, Skin temperature is warm. Musculoskeletal: Range of motion: intact in all extremities. 02:29 Reassessment: No changes from previously documented assessment. Patient and/or family rg5 updated on plan of care and expected duration. Pain level reassessed. Patient is alert, oriented x 3, equal unlabored respirations, skin warm/dry/pink. 03:12 Reassessment: Patient and/or family updated on plan of care and expected duration. Pain rg5 level reassessed. Patient is alert, oriented x 3, equal unlabored respirations, skin warm/dry/pink. Patient states feeling better. Patient states symptoms have improved. 04:07 Reassessment: Patient and/or family updated on plan of care and expected duration. Pain rg5 level reassessed. Patient is alert, oriented x 3, equal unlabored respirations, skin warm/dry/pink. Patient states feeling better. Patient states symptoms have improved. 05:00 Reassessment: Patient and/or family updated on plan of care and expected duration. Pain rg5 level reassessed. Patient is alert, oriented x 3, equal unlabored respirations, skin warm/dry/pink. Patient states feeling better. Patient states symptoms have improved. Vital Signs: 01:32 BP 107 / 77; Resp 17; Temp 97.9(O); Pain 10/10; ss 01:40 BP 107 / 77; Pulse 77; Resp 17; Temp 97.9; Pulse Ox 97% on R/A; Pain 8/10; rg5 02:29 BP 121 / 78; Pulse 78; Resp 18; Pulse Ox 99% on R/A; rg5 03:22 BP 113 / 71; Pulse 90; Resp 18; Pulse Ox 96% on R/A; Pain 4/10; rg5 04:07 BP 113 / 71; Pulse 87; Resp 17; Pulse Ox 98% on R/A; Pain 3/10; rg5 05:00 BP 118 / 78; Pulse 85; Resp 17; Pulse Ox 100% on R/A; Pain 0/10; rg5 01:32 Pain Scale: Adult ss 01:40 Pain Scale: Adult rg5 03:22 Pain Scale: Adult rg5 04:07 Pain Scale: Adult rg5 05:00 Pain Scale: Adult rg5 Agustina Coma Score: 01:40 Eye Response: spontaneous(4). Motor Response: obeys commands(6). Verbal Response: rg5 oriented(5). Total: 15. 04:55 Eye Response: spontaneous(4). Motor Response: obeys commands(6). Verbal Response: sp4 oriented(5). Total: 15. ED Course: 01:31 Patient arrived in ED. [id number] 01:33 William Hilton MD is Attending Physician. sp4 01:33 Triage completed. ss 01:33 Arm band placed on right wrist. ss 01:35 Darius Fernandez, DIOGO is Primary Nurse. rg5 01:40 Patient has correct armband on for positive identification. Bed in low position. Call rg5 light in reach. Side rails up X 1. 01:40 Client placed on continuous cardiac and pulse oximetry monitoring. NIBP monitoring rg5 applied. surveillance monitor on. 01:40 Door closed. Noise minimized. Warm blanket given. Verbal reassurance given. rg5 01:40 No provider procedures requiring assistance completed. Inserted saline lock: 20 gauge rg5 in right antecubital area, using aseptic technique. Blood collected. Flushed with 10 mL NS. 02:00 Patient taken to ultrasound. via stretcher. rg5 02:19 Awaiting lab results. rg5 02:32 Lower Extremity Artery Uni Ltd US In Process Unspecified. EDMS 03:24 Diet: Patient given snack. Patient given juice. rg5 05:10 Provided Education on: POST ER CARE. rg5 05:10 IV discontinued, bleeding controlled, No redness/swelling at site. Pressure dressing rg5 applied. Administered Medications: 01:58 Drug: Banana Bag - (Multivitamin IV 1 amp, NS 0.9% IV 1000 ml, Thiamine IV 100 mg, rg5 foLIC Acid IVPB 1 mg) IV at calculated rate once Route: IV; Rate: calculated rate; Site: right antecubital; 03:45 Follow up: Response: No adverse reaction; IV Status: Completed infusion; IV Intake: rg5 1000ml Medication: 01:40 VIS not applicable for this client. rg5 Intake: 03:45 IV: 1000ml; Total: 1000ml. rg5 Outcome: 04:53 Discharge ordered by . sp4 05:10 Discharged to home ambulatory, rg5 05:10 Condition: stable 05:10 Discharge instructions given to patient, Instructed on discharge instructions, Demonstrated understanding of instructions, follow-up care, 05:13 Patient left the ED. rg5 Signatures: Dispatcher [employer] EDID Kiley Street RN RN ss Elda Hill6 William Hilton MD MD sp4 Darius Fernandez RN RN rg5 Corrections: (The following items were deleted from the chart) 03:24 03:24 Diet: Patient given snack. rg5 rg5
[2024-03-28 05:21] VITALS: TEMP 97.9
[2024-03-28 05:27] VITALS: BP 118/78; O2SAT 100
--- NOTE | 2024-03-28 18:27 | RAD REPORT ---
EXAM DESCRIPTION: US - Lower Extremity Artery Uni Ltd - 03/28/2024 2:30 am CLINICAL HISTORY: Left leg pain. Patient reports to have a stent years ago. TECHNIQUE: Yen scale, color and spectral Doppler ultrasound exam was performed of the left lower ex tremity arteries. COMPARISON: None. FINDINGS: The visualized left lower extremity arteries demonstrate monophasic waveforms and dampened peak systolic velocities. An endovascular stent appears present from proximal/mid superficial femoral artery to distal superfic ial femoral artery. No focal stenosis. Peak velocity Mid PREVOCATIONAL/REHABILITATION COUNSELOR: 29.4 cm/s Prox SFA: 24.9 cm/s Mid SFA: 28.4 cm/s Dist SFA: 19.3 cm/s Pop A: 18.0 cm/s CERTIFIED REGISTERED LOCKSMITH: 17.7 cm/s DPA: 11.4 cm/s IMPRESSION: 1. Diffusely dampened velocities within the left lower extremity arteries. No focal st enosis. 2. Left lower extremity stent appears patent. Electronically signed by: Radha Fierro MD 03/28/2024 04:24 AM CDT Due to temporary technical issues with the PACS/Fluency reporting system, reports are being signed by the in house radiologists without review as a courtesy to insure prompt reporting. The interpreting radiologist is fully responsible for the content of the report.
== END 2024-03-28 05:13 | disposition home or self-care (01) ==
LOC: ER 01:30
DX: F10.229 Alcohol dependence with intoxication, unspecified (principal); K70.10 Alcoholic hepatitis without ascites; E87.1 Hypo-osmolality and hyponatremia; I73.9 Peripheral vascular disease, unspecified; F17.210 Nicotine dependence, cigarettes, uncomplicated
CPT/HCPCS: 85025; 80048; 36415; 80076; 93926; 82077; J3411; J7030